=== PATIENT | male | born 1995 | race American Indian/Alaskan Native ===

== ENCOUNTER 2020-04-06 07:43 | Emergency (ER) | payer OTHER ==
[2020-04-06 07:50] VITALS: BP 120/82
[2020-04-06] MEDS ORDERED: LIDOCAINE (1%) 10 MG/1 ML VIAL 20 ML MDV INFILTRATI ONE (08:25)
--- NOTE | 2020-04-06 08:25 | Emergency Department Report ---
ED General Adult HPI - General Chief complaint: Extremity Injury, Lower Stated complaint: TOE BLEED Time Seen by Provider: 04/06/20 08:12 Source: patient Mode of arrival: Ambulatory Limitations: No Limitations - History of Present Illness Initial comments: 24 YEAR OLD MALE ` with no significant past medical history presents to the ER today complaint of bleeding from his right great toe. Patient states that he noticed the bleeding this morning while using the bathroom. Patient states that 2 weeks ago his right great toe started to become painful, with swelling, and redness. Patient states that he did a telemetry medicine consult, and he was diagnosed with possible gout. He states that he was prescribed naproxen, pain relieving cream, and prednisone. Patient states that the same day after using the cream and taking the medication he developed a small blister to the dorsal distal aspect of the right great toe. He states that he did pop the blister, and he noticed there was drainage of blood and pus. Patient states that he continue doing the cream, the naproxen as needed, and the prednisone off and on. Patient states that his symptoms was improving but this morning when he woke up he noticed that the distal aspect of his right great toe was black and bleeding. He states that the pain is actually better. He denies any numbness to the toe. He denies any injury to the toe 2 weeks ago or any time recently. He states he is able to move his toe. He denies any fever or chills. He states that he has not been on any antibiotics since his symptoms started. He reports no other symptoms at this time. MD Complaint: Bleeding from right great toe -: Gradual, week(s) (2) - Related Data Previous Rx's Medication Instructions Recorded Last Taken Type Acetaminophen/Codeine [Tylenol 1 tab PO Q4HR PRN #12 tablet 04/06/20 Unknown Rx /Codeine # 3 tab] Bacitracin Zinc/Polymyxin B 28.4 gm TP BID #30 gm 04/06/20 Unknown Rx [Double Antibiotic Ointment] Clindamycin [Clindamycin CAP] 300 mg PO Q8H #30 cap 04/06/20 Unknown Rx Allergies Allergy/AdvReac Type Severity Reaction Status Date / Time No Known Allergies Allergy Verified 10/21/17 20:40 ED Review of Systems ROS: Stated complaint: TOE BLEED Other details as noted in HPI Comment: All other systems reviewed and negative Constitutional: denies: chills, fever Respiratory: denies: cough, shortness of breath, wheezing Cardiovascular: denies: chest pain, palpitations Musculoskeletal: joint swelling Skin: change in color, other (Right great toe bleeding) Hematological/Lymphatic: denies: easy bleeding, easy bruising ED Past Medical Hx - Past Medical History Previous Medical History?: Yes Hx Congestive Heart Failure: No Hx Diabetes: No Hx Asthma: Yes Hx COPD: No Hx HIV: No - Social History Smoking Status: Never Smoker Substance Use Type: None - Medications Home Medications: Home Medications Medication Instructions Recorded Confirmed Last Taken Type Acetaminophen/Codeine [Tylenol 1 tab PO Q4HR PRN #12 tablet 04/06/20 Unknown Rx /Codeine # 3 tab] Bacitracin Zinc/Polymyxin B 28.4 gm TP BID #30 gm 04/06/20 Unknown Rx [Double Antibiotic Ointment] Clindamycin [Clindamycin CAP] 300 mg PO Q8H #30 cap 04/06/20 Unknown Rx ED Physical Exam - General Limitations: No Limitations General appearance: alert, in no apparent distress - Respiratory Respiratory exam: Present: normal lung sounds bilaterally. Absent: respiratory distress - Cardiovascular Cardiovascular Exam: Present: regular rate, normal rhythm. Absent: systolic murmur, diastolic murmur, rubs, gallop - Extremities Exam Extremities exam: Present: other (There appears to be a large blood-filled blister noted to the distal dorsal aspect of the right great toe, including around the nail folds of the right great toe. The blister appears to have ruptured, mild bleeding noted from it. No pus noted. No apparent signs of infection or cellulitis. No nail avulsion noted. No nailbed injury or bleeding noted. The right great toe is moderately swollen but there is no tenderness to palpation. He is able to flex and extend the toe at the level of the MTP joint and IP joint. Cap refills appears normal. Sensation over the toes is normal. Strength of the toe is normal.) - Neurological Exam Neurological exam: Present: alert, oriented X3 - Psychiatric Psychiatric exam: Present: normal affect, normal mood ED Course Vital Signs 04/06/20 07:48 Temperature 98.0 F Pulse Rate 56 L Respiratory 16 Rate Blood Pressure 120/82 O2 Sat by Pulse 99 Oximetry - Procedure Description Procedures done: DEBRIDEMENT of blood filled blister and partial removal of toenail. Location -- dorsal distal right great toe. Anesthesia - Lidocaine 1%; Digital block. Cleansed with betadine and irrgated with normal saline. Use forceps, and scissors. bleeding with small clots noted from underneath right great toenail with Partial toenail avulsion; 1/2 (medial aspect) of toenail excised (vertical) using scissors. Dressing applied; patient tolerated procedure well; no complications - Nerve Block Time Out Performed: No Local Anesthetic Used: Lidocaine 1% Amount of anesthesia used: 10 Side: right (Right great toe) Nerve Blocks: digital Procedure Successful: Yes Complications: none Patient Tolerated Procedure: well, no complications ED Medical Decision Making - Radiology Data Radiology results: report reviewed - Medical Decision Making Patient presented to ED c/o bleeding to right great toe since this morning. He reported swelling, pain and redness to great to about 2 weeks ago. He states he was dx with possible gout after doing a telemedicine consult 2 weeks ago and was prescribed lidocaine cream, as well as prednisone and naproxen. Patient states that 2 weeks ago he noticed that a small bump had developed to the dorsal aspect of the toe after using the cream and he ruptured it and pus and blood drained. He states that him he still was getting better but when he woke up this morning he noticed that he was black and bleeding. patient did eventually admit that he was using lidocaine cream more than he was suppose to. Physical exam show that patient has a large blood-filled blister to the distal dorsal aspect of his great toe and around the lateral nail fold which appeared to have ruptured and is currently bleeding mildly. Initially it was no apparent avulsion to the toenail, but during debridement of the blister, the medial half of the toenail was loose, and there was small amount of bleeding with clots coming off from underneath the toenail. Patient did admit to during the procedure that he had some discoloration to his right great toe for months prior to the onset of his symptoms. This part was removed during debridement. Wound malodorous though no significant pus or cellulitis noted. No signs of in fectious tenosynovitis noted. Patient is well-appearing, nontoxic. He is afebrile with his remaining vitals appearing normal. Wound care was discussed with patient but informed him that he will be started on antibiotics, and recommend that he follows up with orthopedic specialists or foot and ankle specialist if he is unable to he can follow-up with local primary care doctor which was given on this discharge instruction. Patient expressed understanding of instructions and agrees with plan. He also understood that if his symptoms worsen in any way to return to the ER. Critical care attestation.: If time is entered above; I have spent that time in minutes in the direct care of this critically ill patient, excluding procedure time. ED Disposition Clinical Impression: Blood blister, Toenail avulsion, Infected blister of toe of right foot Disposition: [id number] TO HOME OR SELFCARE Is pt being admited?: No Does the pt Need Aspirin: No Condition: Stable Instructions: Nail Avulsion, Wound Care, Adult, Blisters, Adult Additional Instructions: Clean daily, but briefly with soap and water only. Do not use peroxide or alcohol. Apply a small amount of antibiotic ointment as prescribed. Take the oral antibiotics as prescribed and to completion. Continue naproxen, for mild to moderate pain, but for severe pain you can take the Tylenol 3. I recommend follow up with psychiatric clinical nurse specialist/him specialist this week for continued monitoring and treatment. If you are unable to follow-up with the psychiatric clinical nurse specialist or him specialist, follow-up with the PCP given on this discharge instruction. If your symptoms get worse or changes in any way return immediately to the ER. Prescriptions: Clindamycin [Clindamycin CAP] 300 mg PO Q8H #30 cap Bacitracin Zinc/Polymyxin B [Double Antibiotic Ointment] 28.4 gm TP BID #30 gm Acetaminophen/Codeine [Tylenol /Codeine # 3 tab] 1 tab PO Q4HR PRN #12 tablet PRN Reason: Pain Referrals: JOLENE HOBSON MD [Staff Physician] - 3-5 Days ANUM JOSE MD [Staff Physician] - 3-5 Days Forms: Work/School Release Form(ED) Time of Disposition: 10:14
--- NOTE | 2020-04-06 09:04 | XRay Report ---
RIGHT GREAT TOE 3 VIEW INDICATION / CLINICAL INFORMATION: blood filled blister right great toe. COMPARISON: None available. FINDINGS: BONES/JOINT(S): No acute fracture or subluxation. No significant degenerative changes. SOFT TISSUES: There is soft tissue swelling in the great toe without radiopaque foreign body. ADDITIONAL FINDINGS: None. Signer Name: Martinez Kovacs MD Signed: 04/06/2020 8:59 AM Workstation Name: [id number]
== END 2020-04-06 10:25 | disposition home or self-care (01) ==
LOC: ED 07:43
DX: S91.201A Unspecified open wound of right great toe with damage to nail, initial encounter (principal); S90.421A Blister (nonthermal), right great toe, initial encounter; T14.8XXA Other injury of unspecified body region, initial encounter; J45.909 Unspecified asthma, uncomplicated; Z79.899 Other long term (current) drug therapy; X58.XXXA Exposure to other specified factors, initial encounter; Y93.89 Activity, other specified; Y92.89 Other specified places as the place of occurrence of the external cause; Y99.8 Other external cause status